=== PATIENT | female | born 1975 | race Caucasian/White ===

== ENCOUNTER → 2016-10-13 | Outpatient (CLI) | payer BC ==
--- NOTE | 2016-10-13 22:18 | KCIC ---
Bilateral digital screening mammograms: Reason for examination: Routine baseline screening. The skin and nipples show no abnormalities. No abnormal axillary lymph nodes are seen. The breast parenchyma shows scattered fibroglandular density. (Breast density: Category B.) There is a small nodular density seen laterally in the left breast on cc view probably at the 2:00 B position. There is also a small nodular density seen posterior superiorly in the left breast on oblique view which probably lies at the 12:00 C position. These may represent small intramammary lymph nodes but recommend further evaluation with ultrasound. There are no other dominant masses, suspicious calcifications or architectural distortions. Impression: Small nodules in the left breast which are probably at the 12:00 C and 2:00 B positions. These may represent intramammary lymph nodes. Recommend further evaluation with ultrasound. BI-RADS Category 0: Incomplete. Ultrasound follow-up is recommended. "Our facility is accredited by the [employer] Mammography [employer]." This patient's information has been entered into a reminder system for the patient to be notified with the results of her examination and a target date for the next mammogram. Electronically signed by: Any Cedillo MD (10/13/2016 10:14 PM)
== END | disposition home or self-care (01) ==
LOC: KCIC MAMMO 15:19
PROVIDERS: ATTEND Nurse Practitioner Family
DX: Z12.31 Encounter for screening mammogram for malignant neoplasm of breast (principal)
CPT/HCPCS: G0202; 77067

== ENCOUNTER → 2016-10-18 | Outpatient (CLI) | payer BC ==
--- NOTE | 2016-10-18 15:43 | RAD ---
LEFT BREAST SONOGRAPHY Clinical indications: further evaluation of 2 nodules seen on the left side on a screening mammogram dated October 13, 2016. One nodule was located at the 2:00 position zone B. A nodule located at the 12:00 position zone C. Findings: High-resolution sonography of the upper outer quadrant left breast was performed. At the 12:00 position, no focal sonographic abnormality is seen. At the 2:00 position 8 cm from nipple, a lymph node is seen measuring 11 mm in size to correspond to the mammographic finding. This demonstrates normal sonographic lymph node architecture. IMPRESSION: The nodule at the 2:00 position corresponds to a benign intramammary lymph node by sonography. Nodule at the 12:00 position mammographically is not seen sonographically and therefore, recommend a 6 month follow-up mammogram of the left breast to ensure stability. BI-RADS Category 3 probable benign finding. Six-month follow-up is recommended. The patient information was entered into the data reminder system with a target due date for the next mammogram of April 14, 2017..
== END | disposition home or self-care (01) ==
LOC: KCIC US 14:05
PROVIDERS: ATTEND Nurse Practitioner Family
DX: N63 Unspecified lump in breast (principal)
CPT/HCPCS: 76641

== ENCOUNTER → 2016-10-28 | Outpatient (CLI) | payer BC ==
--- NOTE | 2016-10-28 09:39 | RAD ---
Abdominal ultrasound, 10/28/2016: History: Abdominal pain, cramping and bloating The gallbladder is surgically absent. The common hepatic duct measures 4 mm. The liver is enlarged measuring 20 cm in craniocaudad extent. It demonstrates increased echogenicity suggesting fatty change. No hepatic mass is evident. The pancreas was obscured by overlying bowel. The spleen is of normal size. No renal abnormality is detected. The incompletely visualized abdominal aorta and inferior vena cava are unremarkable. No free fluid is evident in the abdomen. IMPRESSION: 1. Status post cholecystectomy. 2. Hepatomegaly with increased hepatic echogenicity suggesting hepatic steatosis. 3. Nonvisualization of the pancreas and portions of the central retroperitoneum due to overlying bowel.
== END | disposition home or self-care (01) ==
LOC: US 08:06
PROVIDERS: ATTEND Family Medicine
DX: R10.9 Unspecified abdominal pain (principal); R14.0 Abdominal distension (gaseous); R25.2 Cramp and spasm; Z90.49 Acquired absence of other specified parts of digestive tract; R16.0 Hepatomegaly, not elsewhere classified
CPT/HCPCS: 76700